=== PATIENT | female | born 1970 | race Caucasian/White ===

== ENCOUNTER 2020-11-22 08:12 | Emergency (ER) | payer BC ==
[~2020-11-22] VITALS: Ht 149.9 cm; Wt 61.2 kg
--- NOTE | 2020-11-22 08:25 | NUR ---
BIB SELF C/O HEADACHE STARTED AROUND 4AM. PATIENT TOOK AMLODIPIN 10MG AT 5AM. PATIENT A/OX4, BREATHING EVEN AND UNLABORED, NO S/SX OF STROKE. PATIENT ATTACHED TO THE [employer] SCR[employer]ER.
[2020-11-22] MEDS ORDERED: BENAZEPRIL HCL 10 MG TABLET ONE (08:46)
[2020-11-22] MEDS ORDERED: BENAZEPRIL HCL 10 MG TABLET PO ONE (09:00)
--- NOTE | 2020-11-22 09:02 | NUR ---
BLOOD PRESSURE IMPROVED, HELD MEDICATION, DR. BAÑUELOS MADE AWARE.
[2020-11-22] MEDS ORDERED: BENA40TA67 PO (09:22)
[2020-11-22] MEDS ORDERED: CODE1CAP32 PO (09:22)
--- NOTE | 2020-11-22 09:30 | NUR ---
PATIENT A/OX4, AMBULATORY WITH STEADY GAIT. STILL C/O MILD HEADACHE, BUT BP IMPROVED. Patient discharged to home in stable condition. Written and verbal after care instructions given. Patient verbalizes understanding of instruction.
[2020-11-22 09:33] VITALS: BP 146/89
== END 2020-11-22 09:34 | disposition home or self-care (01) ==
LOC: ER 08:24
DX: R51.9 Headache, unspecified (principal); I10 Essential (primary) hypertension; R42 Dizziness and giddiness; E11.9 Type 2 diabetes mellitus without complications; Z79.899 Other long term (current) drug therapy
CPT/HCPCS: 70450-TC

== ENCOUNTER 2021-04-21 12:11 | Emergency (ER) | payer BC ==
[~2021-04-21] VITALS: Ht 149.9 cm; Wt 63.5 kg
[~2021-04-21 12:11] MED LIST: BENA40TA67 PO; CODE1CAP32 PO
--- NOTE | 2021-04-21 12:35 | NUR ---
BIBS "Started Having a Headache yesterday thought BP high. I ran out of meds 3d". Unable to rate pain. In room air and denies SOB. Respiration regular and unlabored. Will continue to monitor the patient.
[2021-04-21] MEDS ORDERED: AMLO-213 PO (12:55)
[2021-04-21] MEDS ORDERED: METF-440 PO (12:55)
[2021-04-21] MEDS ORDERED: AMLODIPINE BESYLATE 5 MG TABLET ONE (12:56)
[2021-04-21] MEDS: AMLODIPINE BESYLATE 5 MG TABLET PO ONE (12:57)
[2021-04-21] MEDS ORDERED: METOCLOPRAMIDE HCL 10 MG/2 ML VIAL IV ONE (13:00)
[2021-04-21] MEDS ORDERED: diphenhydrAMINE HCL 50 MG/ML VIAL IV ONE (13:00)
[2021-04-21] MEDS ORDERED: IV NS 0.9% 1,000 ML BAG IV ONE (13:00)
[2021-04-21] MEDS ORDERED: ONDANSETRON HCL/PF 4 MG/2 ML VIAL IVP ONE (13:00)
--- NOTE | 2021-04-21 13:36 | NUR ---
Patient discharged to home in stable condition. Written and verbal after care instructions given. Patient verbalizes understanding of instruction.
[2021-04-21 13:37] VITALS: BP 129/92
== END 2021-04-21 13:37 | disposition home or self-care (01) ==
LOC: ER 12:14
DX: I10 Essential (primary) hypertension (principal); R51.9 Headache, unspecified; E11.9 Type 2 diabetes mellitus without complications; Z79.899 Other long term (current) drug therapy

== ENCOUNTER 2021-07-27 15:08 | Outpatient (CLI) | payer BC ==
[~2021-07-27 15:08] MED LIST changes: +AMLO-213 PO; +METF-440 PO
== END 2021-07-27 23:59 | disposition home or self-care (01) ==
LOC: LAB 15:08
PROVIDERS: ATTEND Emergency Medicine
DX: Z01.812 Encounter for preprocedural laboratory examination (principal); Z20.822 Contact with and (suspected) exposure to COVID-19
CPT/HCPCS: C9803; U0003

== ENCOUNTER 2021-09-17 07:42 | Emergency (ER) | payer BC ==
[~2021-09-17] VITALS: Ht 149.9 cm; Wt 59.0 kg
--- NOTE | 2021-09-17 08:00 | NUR ---
PT BIB SELF C/O HEADACHE, BILATERAL LEG PAIN STARTED LAST NIGHT AND VAGINAL ITCHINESS. PT IS AAOX4, NOT IN RESPIRATORY DISTRESS, V/S STABLE, KEPT RESTED AND COMFORTABLE. WILL CONTINUE TO MONITOR.
--- NOTE | 2021-09-17 08:16 | NUR ---
PT SEEN AND EXAMINED BY .
[2021-09-17] MEDS ORDERED: KETOROLAC TROMETHAMINE 15 MG/ML VIAL ONE (08:27)
[2021-09-17] MEDS ORDERED: SUMATRIPTAN SUCCINATE 6 MG/0.5 ML VIAL SQ ONE ×2 (08:27→08:30)
[2021-09-17] MEDS ORDERED: METOCLOPRAMIDE HCL 10 MG/2 ML VIAL ONE (08:27)
[2021-09-17] MEDS ORDERED: FLUCONAZOLE (100 MG) 100 MG TABLET ONE (08:27)
[2021-09-17] MEDS ORDERED: KETOROLAC TROMETHAMINE INJ 30 MG/ML VIAL IV ONE (08:30)
[2021-09-17] MEDS ORDERED: FLUCONAZOLE (100 MG) 100 MG TABLET PO ONE (08:30)
[2021-09-17] MEDS ORDERED: IV NS 0.9% 1,000 ML BAG IV ONE (08:30)
[2021-09-17] MEDS ORDERED: METOCLOPRAMIDE HCL 10 MG/2 ML VIAL IV ONE (08:30)
--- NOTE | 2021-09-17 08:40 | NUR ---
IV LINE ESTABLISHED. ORDERED MEDS GIVEN.
[2021-09-17] MEDS ORDERED: AMLO-213 PO (09:43)
[2021-09-17] MEDS ORDERED: SUMA100T16 PO (09:43)
[2021-09-17] MEDS ORDERED: FLUC200T8 PO (09:43)
[2021-09-17] MEDS ORDERED: METF-440 PO (09:43)
[2021-09-17 09:57] VITALS: BP 125/68
--- NOTE | 2021-09-17 09:57 | NUR ---
IV removed. Catheter intact and site benign. Pressure and 4x4 applied to site. No bleeding noted. Patient discharged to home in stable condition. Written and verbal after care instructions given. Patient verbalizes understanding of instruction.
== END 2021-09-17 09:57 | disposition home or self-care (01) ==
LOC: ER 07:43
DX: R51.9 Headache, unspecified (principal); N89.8 Other specified noninflammatory disorders of vagina; M79.605 Pain in left leg; M79.604 Pain in right leg; I10 Essential (primary) hypertension; E11.9 Type 2 diabetes mellitus without complications; Z79.899 Other long term (current) drug therapy
CPT/HCPCS: 96361; 96372; 96374; 96375; 99284; J1885; J2765; J3030; J7030

== ENCOUNTER 2022-01-22 23:52 | Emergency (ER) | payer BC, OTHER ==
[~2022-01-22] VITALS: Ht 149.9 cm; Wt 59.0 kg
[~2022-01-22 23:52] MED LIST changes: +FLUC200T8 PO; +SUMA100T16 PO
--- NOTE | 2022-01-23 00:15 | NUR ---
TO ER BED 11. BIBS C/O HEADACHE X 2300. PT STATES "HEADACHE IS DUE TO HYPERTENSION". ELEVATED BP NOTED AT TRIAGE 185/101. DENIES ANY CHEST PAIN. NOT IN RESPIRATORY DISTRESS. CONNECTED TO MONITOR. AWAITING MD MOLINA
[2022-01-23] MEDS ORDERED: IV NS 0.9% 1,000 ML BAG IV ONE (01:00)
[2022-01-23] MEDS ORDERED: METOCLOPRAMIDE HCL 10 MG/2 ML VIAL IV ONE (01:00)
[2022-01-23] MEDS ORDERED: diphenhydrAMINE HCL 50 MG/ML VIAL IV ONE (01:00)
[2022-01-23] MEDS ORDERED: KETOROLAC TROMETHAMINE INJ 30 MG/ML VIAL IV ONE (01:00)
[2022-01-23] MEDS ORDERED: KETOROLAC TROMETHAMINE 15 MG/ML VIAL ONE (01:06)
[2022-01-23] MEDS ORDERED: METOCLOPRAMIDE HCL 10 MG/2 ML VIAL ONE (01:06)
[2022-01-23] MEDS ORDERED: diphenhydrAMINE HCL 50 MG/ML VIAL ONE (01:06)
--- NOTE | 2022-01-23 01:18 | NUR ---
IV LINE ESTABLISHED, RAC 20G
[2022-01-23 02:37] VITALS: BP 116/73
== END 2022-01-23 03:11 | disposition home or self-care (01) ==
LOC: ER 23:55
DX: G43.909 Migraine, unspecified, not intractable, without status migrainosus (principal); I10 Essential (primary) hypertension; Z79.899 Other long term (current) drug therapy
CPT/HCPCS: 96361; 96374; 96375; 99284; J1200; J1885; J2765; J7030

== ENCOUNTER 2022-04-20 08:06 | Emergency (ER) | payer BC, OTHER ==
[~2022-04-20] VITALS: Ht 149.9 cm; Wt 59.0 kg
--- NOTE | 2022-04-20 08:15 | NUR ---
RECEIVED PT 52 YRS FEMALE came from here work c/o headache sterted at 4 am ang goting worse this morning wake and alert dinesess any weekness or nubmbness
--- NOTE | 2022-04-20 08:33 | NUR ---
/PA AT BEDSIDE FOR EVAL
[2022-04-20] MEDS ORDERED: SUMATRIPTAN SUCCINATE 6 MG/0.5 ML VIAL SQ ONE ×2 (09:00)
[2022-04-20] MEDS ORDERED: IV NS 0.9% 1,000 ML BAG IV ONE (09:00)
[2022-04-20] MEDS ORDERED: METOCLOPRAMIDE HCL 10 MG/2 ML VIAL ONE (09:00)
[2022-04-20] MEDS ORDERED: METOCLOPRAMIDE HCL 10 MG/2 ML VIAL IV ONE (09:00)
[2022-04-20] MEDS ORDERED: BENAZEPRIL HCL 10 MG TABLET ONE (09:29)
[2022-04-20] MEDS ORDERED: BENAZEPRIL HCL 10 MG TABLET PO ONE (09:30)
[2022-04-20] MEDS ORDERED: BENA40TA8 PO (10:07)
[2022-04-20] MEDS ORDERED: SUMA100T16 PO (10:07)
--- NOTE | 2022-04-20 10:10 | NUR ---
PT RESPONDED TO TX DINESES AND PAIN OR Headache 0/10
--- NOTE | 2022-04-20 10:27 | NUR ---
D/C INSTRACTION GIVEN TO PT FULLY AND verblized understood d/c home with rx and fallow up care
[2022-04-20 10:41] VITALS: BP 142/83
== END 2022-04-20 10:41 | disposition home or self-care (01) ==
LOC: ER 08:08
DX: G43.909 Migraine, unspecified, not intractable, without status migrainosus (principal); I10 Essential (primary) hypertension; Z79.899 Other long term (current) drug therapy
CPT/HCPCS: 99285; 96374; 96361; 96372; J3030; J2765; J7030 ×2

== ENCOUNTER 2022-10-08 08:57 | Outpatient (CLI) | payer BC, OTHER ==
[~2022-10-08 08:57] MED LIST changes: +BENA40TA8 PO
== END 2022-10-08 23:59 | disposition home or self-care (01) ==
LOC: LAB 08:57
PROVIDERS: ATTEND Surgery
DX: Z01.812 Encounter for preprocedural laboratory examination (principal); Z20.822 Contact with and (suspected) exposure to COVID-19
CPT/HCPCS: U0003; C9803

== ENCOUNTER 2022-10-08 13:48 | Outpatient (CLI) | payer BC, OTHER ==
[2022-10-08 15:28] LABS: BASOPHILS % (AUTO) 0.3 % (0.0-2.0); BILIRUBIN,URINE NEGATIVE (NEGATIVE); COLOR,URINE YELLOW (YELLOW); EOSINOPHILS % (AUTO) 0.9 % (0.0-6.0); HEMATOCRIT 39 % (33-45); HEMOGLOBIN 12.9 g/dL (11.5-14.8); LEUKOCYTE ESTERASE ,URINE NEGATIVE (NEGATIVE); LYMPHOCYTES # (AUTO) 2.2 K/uL (0.8-4.8); LYMPHOCYTES % (AUTO) 24.2 % (20.0-44.0); MEAN CORPUSCULAR HGB CONC 33 g/dl (31.0-36.0); MEAN CORPUSCULAR VOLUME 82 fL (82-100); MONOCYTES # (AUTO) 0.6 K/uL (0.1-1.30); MONOCYTES % (AUTO) 6.3 % (2.0-12.0); NEUTROPHILS # (AUTO) 6.1 K/uL (1.8-8.9); NEUTROPHILS % (AUTO) 68.3 % (43.0-81.0); NITRITE, URINE NEGATIVE (NEGATIVE); PH,URINE 7.5 (5.0-8.0); PLATELET COUNT (AUTO) 437 K/uL (150-450); PROTEIN,URINE NEGATIVE (NEGATIVE); RED BLOOD CELL COUNT(AUTO) 4.74 MIL/uL (4.0-5.2); UGLUCOSE NEGATIVE (NEGATIVE); UROBILINOGEN,URINE 0.2 EU/dL (0.2)
[2022-10-08 15:45] LABS: BILIRUBIN,TOTAL 0.5 mg/dL (0.2-1.0); CALCIUM, SERUM 9.1 mg/dL (8.5-10.1); CREATININE 0.7 mg/dL (0.6-1.3); TOTAL PROTEIN, SERUM 8.2 g/dL (6.4-8.2)
== END 2022-10-08 23:59 | disposition home or self-care (01) ==
LOC: RAD 13:48
PROVIDERS: ATTEND Family Medicine
DX: Z01.818 Encounter for other preprocedural examination (principal)
CPT/HCPCS: 36415; 71046; 80053-TC; 85025-TC; 85730-TC